=== PATIENT | male | born 1960 | race African-American/Black ===

== ENCOUNTER 2022-07-26 08:03 | Day surgery (SDC) | payer OTHER ==
[2022-07-26] MEDS ORDERED: Ringers Lactate 1,000 ML IV ONE (08:53)
[2022-07-26] MEDS ORDERED: CEFAZOLIN SODIUM 2 GM/VIAL ONE (08:53)
[2022-07-26 09:34] VITALS: BP 147/91; TEMP 97.5; O2SAT 97
--- NOTE | 2022-07-26 17:39 | EKG ---
Test Date: 2022-07-23 Test Time: 15:44:49 Certified Nurse Operating Room: [facility] MEASUREMENT RESULTS: Intervals: Rate: 62 CO: 246 QRSD: 94 QT: 388 QTc: 393 [place]: P: 25 CO: 246 QRS: -17 T: 9 INTERPRETIVE STATEMENTS: Sinus rhythm with 2nd degree AV block (Mobitz II) Minimal voltage criteria for LVH, may be normal variant Abnormal ECG Compared to ECG 05/10/2005 15:09:00 Sinus bradycardia no longer present Electronically Signed On 07-26-22 17:34:23 STONE RUBBER by Rolando Rodriguez
== END 2022-07-26 10:26 | disposition home or self-care (01) ==
LOC: OR 08:03
PROVIDERS: ATTEND Surgery
DX: K43.9 Ventral hernia without obstruction or gangrene (principal); I10 Essential (primary) hypertension; E78.5 Hyperlipidemia, unspecified; Z53.09 Procedure and treatment not carried out because of other contraindication
CPT/HCPCS: 93005; 80048; 36415; J7120

== ENCOUNTER 2022-09-08 06:30 | Day surgery (SDC) | payer OTHER ==
[2022-08-25 10:55] LABS: Absolute Lymphocytes (CBC) 1.2 K/uL (0.7-4.9); Hematocrit 39.1 % (39.6-49.0); Lymphocytes % 31.2 % (15.3-44.8); MCV 89.5 fL (80-100); MPV 9.7 fL (7.6-11.3); RBC Red Blood Cell Count 4.37 M/uL (4.33-5.43)
[2022-08-25 10:59] LABS: Protime INR 1.03
[2022-08-25 11:08] LABS: Potassium 4.4 mmol/L (3.5-5.1)
--- NOTE | 2022-08-25 11:34 | RAD REPORT ---
EXAM DESCRIPTION: Rossy Ratliff And Juan (2 Views)08/25/2022 9:56 am CLINICAL HISTORY: Preop for cardiac catheterization. Hypertension COMPARISON: 2010 FINDINGS: The lungs are moderately to markedly hyperaerated consistent with COPD. The lungs appear clear of acute infiltrate. The heart is normal size IMPRESSION: No acute abnormalities displayed
--- NOTE | 2022-08-25 12:57 | EKG ---
Test Date: 2022-08-25 Test Time: 09:40:10 Inflated Pad Buffer: JENNIFFER MEASUREMENT RESULTS: Intervals: Rate: 65 MO: 262 QRSD: 86 QT: 376 QTc: 391 [place]: P: 46 MO: 262 QRS: -1 T: -3 INTERPRETIVE STATEMENTS: Sinus rhythm with 1st degree AV block Otherwise normal ECG Compared to ECG 07/23/2022 15:44:49 First degree AV block now present Left ventricular hypertrophy no longer present Electronically Signed On 08-25-22 12:56:36 LOG DATA TECHNICIAN by Rolando Rodriguez
[~2022-09-08 06:30] MED LIST: HEPA 1000U/500MLS 2,000 UNIT/1,000 ML BAG IV ONE; LIDOCAINE 1% 20 ML MDV ONE
[2022-09-08] MEDS ORDERED: FENTANYL CITR 100 MCG/2 ML ONE (06:31)
[2022-09-08] MEDS ORDERED: MIDAZOLAM HCL 2 MG/2 ML INJ ONE (06:31)
[2022-09-08] MEDS ORDERED: HEPARIN 5000 UNIT/ML 1 ML VIAL ONE (06:31)
[2022-09-08] MEDS ORDERED: TICAGRELOR 90 MG TABLET PO ONE (06:32)
[2022-09-08] MEDS ORDERED: ATROPINE SULF 1 MG/10 ML SYR IV ONE (06:32)
[2022-09-08] MEDS ORDERED: VERAPAMIL HCL 10 MG/4 ML VIAL IV ONE (06:32)
[2022-09-08] MEDS ORDERED: CLOPIDOGREL 75 MG TABLET ONE (06:32)
[2022-09-08] MEDS ORDERED: ASPIRIN 325 MG TAB ONE (06:32)
[2022-09-08] MEDS ORDERED: HEPARIN 10,000 UNIT/10 ML VIAL IV ONE (06:32)
[2022-09-08] MEDS ORDERED: NITROGLYCERIN/D5W 25 MG/250 ML BTL IV ONE (06:33)
[2022-09-08] MEDS ORDERED: NITROGLYCERIN 100 MCG/ML SYR (for cath lab use only) IV ONE (06:33)
[2022-09-08] MEDS ORDERED: NA CHLORIDE 0.9% 500 ML ONE (06:42)
[2022-09-08 09:09] VITALS: TEMP 98
[2022-09-08 09:48] VITALS: BP 147/53; O2SAT 98
--- NOTE | 2022-09-09 00:44 | OP ---
Date of Procedure: 09/08/2022 Surgeon: RODRÍGUEZ CUTLER Procedures Performed: 1.Selective coronary angiogram. 2.Left heart catheterization. Indication: Abnormal stress test. Access: Right radial artery 6-[place] closed with TR band. Complications: None. Estimated Blood Loss: Bleeding less than 10 mL. Anesthesia: Total sedation time was 20 minutes. Description Of Procedure: After risks, benefits, and alternatives were explained, the patient agreed to procedure and signed informed consent. The patient was brought into the cardiac catheterization laboratory and prepped and draped in sterile fashion. Then I accessed right radial artery using pedi atric micropuncture kit and placed a 6-[place] Slender sheath and took a 5-[place] 4 catheter int o the aortic root, engaged left main and the right coronary artery, and took standard views and pinky ter was pushed over the wire into the LV, measured the LVEDP and pullback did not record any gradient . Then I removed the catheter and sheath and placed TR band with good hemostasis. Findings: 1.Left main: Large, normal. 2.LAD: Large vessel, normal proximal to mid and distally there is 50% stenosis and the diagonal bran ches appear to be normal. 3.Left circumflex: This is a rather large vessel with proximal of 40% to 50%, and the OM branch has mid 50% to 60%, but ARIEL-3 flow. 4.RCA: Large and dominant as well and has mid 50% stenosis. 5.Normal LVEDP at 9 mmHg. Conclusion: 1.Moderate coronary artery disease. 2.Normal left ventricular end-diastolic pressure. Plan: Medical management. /MODL Voice ID: [id number] Report ID: [id number]
== END 2022-09-08 10:00 | disposition home or self-care (01) ==
LOC: CCL 06:30
PROVIDERS: ATTEND Internal Medicine
PROC: 4A023N7 Measurement of Cardiac Sampling and Pressure, Left Heart, Percutaneous Approach (ICD-10-PCS; principal; 2022-09-08)
PROC: B2111ZZ Fluoroscopy of Multiple Coronary Arteries using Low Osmolar Contrast (ICD-10-PCS; 2022-09-08)
DX: I25.10 Atherosclerotic heart disease of native coronary artery without angina pectoris (principal); I44.1 Atrioventricular block, second degree; I10 Essential (primary) hypertension; E78.5 Hyperlipidemia, unspecified; Z79.899 Other long term (current) drug therapy
CPT/HCPCS: 36415; 71046; 80048; 85025; 85610; 85730; 93005; 93458; C1893; J0461; J1644; J2001; J2250; J3010; J7040; Q9967

== ENCOUNTER 2022-10-04 11:29 | Day surgery (SDC) | payer OTHER ==
[2022-10-04] MEDS ORDERED: Ringers Lactate 1,000 ML IV ONE (12:01)
[2022-10-04 12:56] LABS: Absolute Lymphocytes (CBC) 1.1 K/uL (0.7-4.9); Hematocrit 36.7 % (39.6-49.0); Lymphocytes % 29.1 % (15.3-44.8); MCV 88.5 fL (80-100); MPV 8.9 fL (7.6-11.3); RBC Red Blood Cell Count 4.15 M/uL (4.33-5.43)
[2022-10-04] MEDS ORDERED: ROCURONIUM 50 MG/5 ML VIAL IV ONE ×2 (13:02→13:42)
[2022-10-04] MEDS ORDERED: propofoL 200 MG/20 ML VIAL IV ONE ×2 (13:02→13:42)
[2022-10-04] MEDS ORDERED: MIDAZOLAM HCL 2 MG/2 ML INJ ONE ×2 (13:02→13:42)
[2022-10-04] MEDS ORDERED: FENTANYL CITR 100 MCG/2 ML ONE ×2 (13:02→13:42)
[2022-10-04] MEDS ORDERED: LIDOCAINE 2% MPF 5 ML VIAL ONE ×2 (13:02→13:42)
[2022-10-04] MEDS ORDERED: KETOROLAC 30 MG/ML INJ ONE (13:02)
[2022-10-04] MEDS ORDERED: dexAMETHasone 10 MG/ML VIAL ONE (13:02)
[2022-10-04] MEDS ORDERED: ONDANSETRON 4 MG/2 ML VIAL ONE ×2 (13:05→14:31)
[2022-10-04] MEDS ORDERED: SUCCINYLCHOLINE 20 MG/ML (10 ML) IV ONE (13:50)
[2022-10-04] MEDS: BUPIVACAINE 0.25% PF 10 ML VIAL ONE ×2 (14:06→14:11)
[2022-10-04] MEDS: CEFAZOLIN SODIUM 2 GM/VIAL ONE ×2 (14:07→14:11)
[2022-10-04] MEDS ORDERED: GLYCOPYRROLATE 0.2 MG/ML SYR ONE (14:31)
[2022-10-04] MEDS ORDERED: NEOSTIGMINE 1 MG/ML -10 ML VIAL ONE ×2 (14:31→14:32)
[2022-10-04] MEDS ORDERED: EPHEDRINE SULF 50 MG/ML VIAL ONE (14:35)
--- NOTE | 2022-10-04 14:45 | P.OP ---
Preoperative diagnosis: Ventral Umbilical Hernia Postoperative diagnosis: Ventral Umbilical Hernia Primary procedure: Laparoscopic Ventral umbilical hernia repair with mesh Anesthesia: GETA + local Estimated blood loss: <5cc Specimen: hernia contents Findings: incarcerated pre-peritoneal adipose ~2cm umbilical hernia Complications: None Implants: Bard Ventralite ST 11.4cm round, Sorbafix 45 tacks Transferred to: Recovery Room Condition: Good
[2022-10-04] MEDS ORDERED: LABETALOL HCL 100 MG/20 ML ONE (15:04)
[2022-10-04] MEDS: HYDROMORPHONE HCL 1 MG/ML INJ ONE ×2 (15:25→15:30)
[2022-10-04] MEDS ORDERED: ALBUTEROL 2.5 MG/3 ML NEB SOL ONE (15:47)
[2022-10-04] MEDS ORDERED: HYDROMORPHONE HCL 1 MG/ML INJ ONE (16:03)
[2022-10-04] MEDS ORDERED: HYDROCODONE/APAP 7.5/325 MG TAB ONE (17:03)
[2022-10-04 17:30] VITALS: BP 144/91; TEMP 97.1; O2SAT 97
--- NOTE | 2022-10-05 02:03 | OP ---
Date of Procedure: 10/04/2022 Surgeon: Rickey Boyle MD, Preoperative Diagnosis: Ventral umbilical hernia. Postoperative Diagnosis: Ventral umbilical hernia. Procedure Performed: A laparoscopic ventral umbilical hernia repair with mesh. Anesthesia: General endotracheal plus local with 0.25% Marcaine. Estimated Blood Loss: Less than 5 cc. Specimens: Hernia contents. Findings: Incarcerated preperitoneal adipose tissue approximately 2 cm hernia defect. Complications: None. Implants: Bard Ventralight ST mesh with Echo Positioning System 1.4 cm round mesh utilized with Sorb aFix fixation tacks, 45 tacks utilized. Disposition: The patient was transferred to recovery room in good condition. Procedure In Detail: After informed consent was obtained, the patient brought to the operating room, prepped and draped in the usual sterile fashion. After adequate anesthesia was achieved, an area in the left upper quadrant was anesthetized with 0.25% Marcaine and sharply incised. A 5 mm trocar was placed under direct visualization without evidence of any complication. Insufflation was obtained t o 15 mmHg at this time. There was no injury to vital structures upon entry into the abdomen. Additi onal trocar was placed in the left lower quadrant and the same was anesthetized sharply and incised. A 12 mm trocar was placed under direct visualization without evidence of any complication. Insuffla tion remained at 15 throughout the procedure. At this point, I used the LigaSure device to take the preperitoneal fat down after the umbilical hernia defect was found to be approximately 2 cm in size. After the preperitoneal adipose tissue was removed, which was completely incarcerated within the her kenya sac. This was placed in an Endo Catch bag and removed and sent off for pathologic examination. At this point, insufflation was re-obtained. I then used the Endo Stitch with the 0 V-Loc suture to run and imbricate the hernia sac in a running fashion with good approximation of tissues. At this po int, a 1.[address] mesh with Echo Positioning System was deployed in the central porti on of the hernia defect. A small separate stab incision was then used to grasp and deploy the balloo n system. At this point, a single crown of SorbaFix absorbable fixation tacks was used to secure the mesh to the anterior abdominal wall. The balloon deployment system was then removed and found to be intact on the back table. I then secured the second crown of SorbaFix absorbable fixation tacks to the anterior abdominal wall for a total of 45 tacks used with good approximation of the mesh to the a nterior bowel wall. At this point, the hernia defect was closed satisfactorily. I then turned my at tention to the 12 mm trocar site. The 12 mm trocar was removed and 12 mm trocar site was closed usin na Hernandez suture passer with 0 Vicryl in interrupted fashion with good approximation of tis sues. No bleeding was appreciated throughout the procedure. At this point, abdomen was desufflated under direct visualization without evidence of any complication. All skin incisions were then copiou sly irrigated and closed with 409 Monocryl in running fashion. Dermabond was placed over top. The p atient tolerated the procedure without evidence of any complication and transferred to PACU in good c ondition. All counts were correct at the end of the case. JEF/GANESH Voice ID: [id number] Report ID: [id number]
== END 2022-10-04 17:59 | disposition home or self-care (01) ==
LOC: OR 11:29
PROVIDERS: ATTEND Surgery
PROC: 0WUF4JZ Supplement Abdominal Wall with Synthetic Substitute, Percutaneous Endoscopic Approach (ICD-10-PCS; principal; 2022-10-04 13:45)
DX: K43.9 Ventral hernia without obstruction or gangrene (principal); I10 Essential (primary) hypertension; E78.5 Hyperlipidemia, unspecified
CPT/HCPCS: 85025; 80048; 36415; 88302; 49592; J2704; J2710 ×2; J7613; J2001; J2250; J3010; J1170 ×2; J2405; J7120; C1781; J1100